=== PATIENT | female | born 2000 | race Asian ===

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

== ENCOUNTER 2019-12-15 18:32 | Emergency (ER) | payer OTHER, SELFPAY ==
[2019-12-15 18:43] VITALS: BP 127/85; PULSE 107; RESP 15; TEMP 36.9; O2SAT 97; BMI 23.9
--- NOTE | 2019-12-15 18:55 | ED_ITS ---
HPI - Chest Pain <TRACIE Marshall - Last Filed: 12/15/19 20:37> General Chief Complaint: Chest Pain Stated Complaint: feels like something stuck in her chest Time Seen by Provider: 12/15/19 18:38 Source: patient Mode of arrival: Ambulatory History of Present Illness HPI narrative: 19-year-old female with a history of anxiety, panic attacks, and palpitations, presents emergency department for ?feeling like there is something stuck in my chest ?. She states she has started taking antibiotics 3 days ago, every time she swallows the antibiotic she feels like it gets stuck. She states the feeling usually resolves in about 45 minutes. However, today she ate a piece of bread and felt like the food particle was stuck. Patient's mother states during this episode her daughter was complaining of shortness of breath, crying, and appeared sweaty. Patient states the feeling as lessened but remains there. She denies any chest pressure, pain, fevers, chills, nausea, vomiting, diarrhea, abdominal pain, or any other concerns. Related Data Previous Rx's Medication Instructions Recorded omeprazole 20 mg PO DAILY 14 Days #14 cap 12/15/19 Allergies Allergy/AdvReac Type Severity Reaction Status Date / Time No Known Drug Allergies Allergy Verified 12/15/19 18:42 Review of Systems <TRACIE Marshall - Last Filed: 12/15/19 20:37> Review of Systems Narrative: REVIEW OF SYSTEMS: GENERAL: Denies fever or chills. HENT: No head trauma or sore throat. EYES: No vision changes. CARDIOVASCULAR: Reports feeling like there is something stuck in her chest, see HPI. RESPIRATORY: No cough. GASTROINTESTINAL: No nausea, vomiting, diarrhea, or constipation. GENITOURINARY: No flank pain or dysuria. MUSCULOSKELETAL: No pain, weakness, or deformities. INTEGUMENTARY: No rash, lesions, or pruritus. NEURO: No numbness or tingling. Patient History <TRACIE Marshall - Last Filed: 12/15/19 20:37> Medical History Healthy adult (Acute) Surgical History No pertinent past surgical history (Acute) Social History Smoking Status: Never smoker Smoking Status: Never smoker alcohol intake frequency: 0-2 drinks per day Substance Use Type: does not use Exam <TRACIE Marshall - Last Filed: 12/15/19 20:37> Initial Vital Signs Initial Vital Signs: Vital Signs Temperature 98.5 F 12/15/19 18:43 Pulse Rate 107 H 12/15/19 18:43 Respiratory Rate 15 12/15/19 18:43 Blood Pressure 127/85 12/15/19 18:43 Pulse Oximetry 97 12/15/19 18:43 PHYSICAL EXAMINATION: GENERAL: Well groomed, alert, and cooperative. Answers questions promptly and appropriately. Vital signs noted. HENT: Normocephalic, atraumatic. Ear canals patent. Oral mucosa is pink and moist. Maintaining secretions. EYES: Conjunctiva pink, sclera white, no periorbital swelling. CHEST: Normal to inspection and without deformities. No pain with palpation. CARDIOVASCULAR: S1 and S2 sounds normal. Slight tachycardia, no clicks, murmurs, or bruits. RESPIRATORY: Normal respiratory rate, trachea midline, airway patent. No stridor, nasal flaring or accessory muscle use. Lungs are clear in all rosa w ithout wheeze, rhonchi, or crackles. GASTROINTESTINAL: Bowel sounds normoactive. Abdomen is soft and non-tender. No organomegaly. MUSCULOSKELETAL: Normal gait and coordination. Equal tone and mass bilaterally. EXTREMITIES: CMS intact. Moves all extremities. SKIN: Warm, dry, soft, appropriate color for ethnicity. No lesions, rashes, or wounds. NEURO: Alert and Oriented X 3. Good coordination. No ataxia, or sensory deficits, or cognitive issues. PSYCH: Appropriate affect and mood. <Betsy Alvarado MD - Last Filed: 12/16/19 01:55> Initial Vital Signs Initial Vital Signs: Vital Signs Temperature 98.5 F 12/15/19 18:43 Pulse Rate 107 H 12/15/19 18:43 Respiratory Rate 15 12/15/19 18:43 Blood Pressure 127/85 12/15/19 18:43 Pulse Oximetry 97 12/15/19 18:43 Course <TRACIE Marshall - Last Filed: 12/15/19 20:37> Course Course Narrative: 1949: Patient reports she is feeling much better after GI cocktail. She was given juice and crackers for a p.o. trial. 0: Patient continues to feel much better, is able to drink orange use any crackers. Discussed with patient about diet changes in taking anti acid medic ations. Orders Ordered: ED Orders 12/15/19 18:43 EKG-12 Lead Stat 12/15/19 19:01 XR chest 2V Stat XR soft tissue neck Stat 12/15/19 19:35 Complete Blood Count AUTO DIFF Stat Comprehensive Metabolic Panel Stat Troponin & CK Cardiac Panel Stat Discontinued Medications Al Hydrox/Mg Hydrox/Simethicone 20 ml/ Lidocaine HCl 15 ml 0 ml PO NOW ONE Stop: 12/15/19 18:50 Last Admin: 12/15/19 19:05 Dose: 35 ml Documented by: SUDEEP Vital Signs Vital signs: Vital Signs - 8 hr 12/15/19 18:43 12/15/19 20:15 12/15/19 20:31 Temperature 98.5 F Pulse Rate 107 H 82 90 Respiratory Rate 15 16 16 Blood Pressure 127/85 119/70 Blood Pressure [Right Arm] 119/70 Pulse Oximetry 97 99 97 <Betsy Alvarado MD - Last Filed: 12/16/19 01:55> Orders Ordered: ED Orders 12/15/19 18:43 EKG-12 Lead Stat 12/15/19 19:01 XR chest 2V Stat XR soft tissue neck Stat 12/15/19 19:35 Complete Blood Count AUTO DIFF Stat Comprehensive Metabolic Panel Stat Troponin & CK Cardiac Panel Stat Discontinued Medications Al Hydrox/Mg Hydrox/Simethicone 20 ml/ Lidocaine HCl 15 ml 0 ml PO NOW ONE Stop: 12/15/19 18:50 Last Admin: 12/15/19 19:05 Dose: 35 ml Documented by: SUDEEP Vital Signs Vital signs: Vital Signs - 8 hr 12/15/19 18:43 12/15/19 20:15 12/15/19 20:31 Temperature 98.5 F Pulse Rate 107 H 82 90 Respiratory Rate 15 16 16 Blood Pressure 127/85 119/70 Blood Pressure [Right Arm] 119/70 Pulse Oximetry 97 99 97 MDM - Chest Pain <TRACIE Marshall - Last Filed: 12/15/19 20:37> Medical Records Data Attestation: I reviewed the patient's medical records. Lab Data Attestation: I reviewed the patient's lab results. Result diagrams: 12/15/19 19:35 12/15/19 19:35 Labs: Lab Results 12/15/19 12/15/19 Range/Units 19:35 19:35 WBC 9.5 (4.5-11.0) X10^3/uL RBC 4.40 (4.0-5.2) X10^6/uL Hgb 13.3 (12.0-16.0) g/dL Hct 38.5 (36-46) % MCV 87.5 (80-100) fL MCH 30.3 (26-34) PG MCHC 34.6 (30-36) % RDW 12.8 (11.6-14.8) % Plt Count 255 (150-400) X10^3/uL Neut % (Auto) 71.2 (50-75) % Lymph % (Auto) 16.4 L (25-40) % [place] % (Auto) 7.5 (3-14) % Eos % (Auto) 1.5 L (2-4) % Baso % (Auto) 3.4 H (0-2) % Neut # (Auto) 6700 (4649-4251) /uL Lymph # (Auto) 1600 (5354-1968) /uL [place] # (Auto) 700 (0-900) /uL Eos # (Auto) 100 (0-450) /uL Baso # (Auto) 300 H (0-100) /uL Sodium 137 (137-145) mmol/L Potassium 3.4 (3.4-5.1) mmol/L Chloride 103 (98-107) mmol/L Carbon Dioxide 23 (22-32) mmol/L BUN 11 (7-17) mg/dL Creatinine 0.55 (0.52-1.04) mg/dL Estimated GFR > 60.0 (>60) mL/min BUN/Creatinine Ratio 20.0 (6-22) Glucose 187 H (70-100) mg/dL Calcium 9.7 (8.4-10.2) mg/dL Total Bilirubin 1.1 (0.2-1.3) mg/dL AST 25 (14-36) IU/L ALT 16 (<35) IU/L Alkaline Phosphatase 42 (38-126) U/L Total Creatine Kinase 119 (30-135) U/L CK-MB (CK-2) 2.46 H (<2.37) ng/mL CK-MB (CK-2) Rel Index 2.1 (1.5-5.0) % Troponin I < 0.012 (0.01-0.034) ng/mL Total Protein 8.1 (6.3-8.2) g/dL Albumin 4.6 (3.5-5.0) g/dL Globulin 3.5 (1.7-4.1) g/dL Albumin/Globulin Ratio 1.3 (1.0-2.8) Imaging Data Soft Tissue Neck XR: Radiologist's Impression: [address] [address] XRay Report Signed Patient: Ana Laura Berrios [facility]#: [id number] : 2000Acct:[id number] Age/Sex: FDate of Service: 12/15/19 Loc: ED Accession Number: [id number] Procedure: XR soft tissue neck Ordering Provider: Rocío Jain PROCEDURE: XR SOFT TISSUE NECK INDICATIONS: Possible foreign body, something stuck in my throat/chest TECHNIQUE: 2 views of the neck were acquired. COMPARISON: None. FINDINGS: Airway: The airway appears patent. Soft tissues: Prevertebral soft tissues are normal in thickness. The epiglottis and aryepiglottic folds appear normal. No soft tissue gas. No radiopaque foreign body Bones: No suspicious bony lesions. Visualized cervical spine is normally aligned. Linear sclerosis projecting at the thyroid cartilage. IMPRESSION: No radiopaque foreign body. Dictated by: Silvano Nolen M.D. on 12/15/2019 at 19:43 Approved by: Silvano Nolen M.D. on 12/15/2019 at 19:45 Chest x-ray: Radiologist's Impression: [address] [address] XRay Report Signed Patient: Ana Laura Berrios [facility]#: [id number] : 2000Acct:[id number] Age/Sex: / FDate of Service: 12/15/19 Loc: ED Accession Number: [id number] Procedure: XR chest 2V Ordering Provider: Rocío Jain PROCEDURE: XR CHEST 2V INDICATIONS: Rule out foreign body TECHNIQUE: 2 views of the chest were acquired. COMPARISON: None. FINDINGS: Surgical changes and devices: None. Lungs and pleura: Lungs are clear. No pleural effusions or pneumothorax. Mediastinum: Mediastinal contours are normal. Heart size is normal. Bones and chest wall: No suspicious bony abnormalities. Soft tissues appear unremarkable. IMPRESSION: Clear lungs No radiopaque foreign body identified Dictated by: Silvano Nolen M.D. on 12/15/2019 at 19:42 Approved by: Silvano Nolen M.D. on 12/15/2019 at 19:43 ECG Data Interpretation: Sinus rhythm, rate 95, MD interval 156, QTC 454. No ST elevation or ST depression. V3 with T-wave inversion. No ectopy. EKG also viewed by Dr. Alvarado per protocol. MDM Narrative Medical decision making narrative: 19-year-old healthy female presents emergency department with feelings of something stuck in her chest. I suspect patient's symptoms are most likely caused by an esophageal abrasion and or irritation due to lack of foreign body seen on x-ray, patient is maintaining secretions, patient reported improved symptoms after administration of GI cocktail. This irritation and sensation appeared after taking her antibiotic pills and just recently after swallowing some bread. I suspect the incident was made worse by patient's anxiety which he states has been high lately, patient has been seeing a therapist for this. This is most likely the cause of sweating and nervousness with a sensation. Less likely foreign body due to negative x-rays, complete resolution of symptoms after GI cocktail. Patient able to eat and drink without difficulty. Less likely cardiac in nature due to negative laboratory work. There was a T-wave inversion on EKG this may be related lead placement, no acute findings found on EKG at this time. Less likely acute abdominal etiology due to benign abdominal exam and lack of other symptoms such as fever. Patient did initially present with mild tachycardia which was significantly decreased after interview, this was seen on monitors. I suspect this may be related to anxiety. I Discussed the importance of follow-up with her primary care provider, patient and mother agreed to plan of care verbalized understanding. <Betsy Alvarado MD - Last Filed: 12/16/19 01:55> Lab Data Labs: Lab Results 12/15/19 12/15/19 Range/Units 19:35 19:35 WBC 9.5 (4.5-11.0) X10^3/uL RBC 4.40 (4.0-5.2) X10^6/uL Hgb 13.3 (12.0-16.0) g/dL Hct 38.5 (36-46) % MCV 87.5 (80-100) fL MCH 30.3 (26-34) PG MCHC 34.6 (30-36) % RDW 12.8 (11.6-14.8) % Plt Count 255 (150-400) X10^3/uL Neut % (Auto) 71.2 (50-75) % Lymph % (Auto) 16.4 L (25-40) % [place] % (Auto) 7.5 (3-14) % Eos % (Auto) 1.5 L (2-4) % Baso % (Auto) 3.4 H (0-2) % Neut # (Auto) 6700 (9996-4302) /uL Lymph # (Auto) 1600 (1170-7754) /uL [place] # (Auto) 700 (0-900) /uL Eos # (Auto) 100 (0-450) /uL Baso # (Auto) 300 H (0-100) /uL Sodium 137 (137-145) mmol/L Potassium 3.4 (3.4-5.1) mmol/L Chloride 103 (98-107) mmol/L Carbon Dioxide 23 (22-32) mmol/L BUN 11 (7-17) mg/dL Creatinine 0.55 (0.52-1.04) mg/dL Estimated GFR > 60.0 (>60) mL/min BUN/Creatinine Ratio 20.0 (6-22) Glucose 187 H (70-100) mg/dL Calcium 9.7 (8.4-10.2) mg/dL Total Bilirubin 1.1 (0.2-1.3) mg/dL AST 25 (14-36) IU/L ALT 16 (<35) IU/L Alkaline Phosphatase 42 (38-126) U/L Total Creatine Kinase 119 (30-135) U/L CK-MB (CK-2) 2.46 H (<2.37) ng/mL CK-MB (CK-2) Rel Index 2.1 (1.5-5.0) % Troponin I < 0.012 (0.01-0.034) ng/mL Total Protein 8.1 (6.3-8.2) g/dL Albumin 4.6 (3.5-5.0) g/dL Globulin 3.5 (1.7-4.1) g/dL Albumin/Globulin Ratio 1.3 (1.0-2.8) Discharge Plan Departure Patient Disposition: Home Clinical Impression: Esophageal abrasion Qualifiers: Encounter type: initial encounter Qualified Code(s): S27.818A - Other injury of esophagus (thoracic part), initial encounter Discharge Date/Time: 12/15/19 20:32 Activity Restrictions/Additional Instructions: Thank you for entrusting me with your care today. As discussed, I suspect your symptoms are most likely caused by an abrasion or irritation of your esophagus from your pills. You may discontinue your antibiotic pills. I have given you a prescription for an acid train planner, please take this as directed the next 2 weeks. I encourage you to avoid spicy or acidic foods as this could further irritate esophagus. Follow-up with your primary care provider in the next week for further evaluatio n. Return emergency department for any new or worsening symptoms such as chest pain, shortness of breath, difficulty swelling, or any other concerns. Prescriptions: New omeprazole 20 mg capsule,delayed release(DR/EC) 20 mg PO DAILY 14 Days Qty: 14 RF: 0 <Betsy Alvarado MD - Last Filed: 12/16/19 01:55> [facility] Attestation: I was immediately available in the department for consultation throughout this patient's visit. I agree with documentation as above. Betsy Alvarado MD
--- NOTE | 2019-12-15 19:01 | DI.RAD.S_ITS ---
PROCEDURE: XR CHEST 2V INDICATIONS: Rule out foreign body TECHNIQUE: 2 views of the chest were acquired. COMPARISON: None. FINDINGS: Surgical changes and devices: None. Lungs and pleura: Lungs are clear. No pleural effusions or pneumothorax. Mediastinum: Mediastinal contours are normal. Heart size is normal. Bones and chest wall: No suspicious bony abnormalities. Soft tissues appear unremarkable. IMPRESSION: Clear lungs No radiopaque foreign body identified Dictated by: Silvano Nolen M.D. on 12/15/2019 at 19:42 Approved by: Silvano Nolen M.D. on 12/15/2019 at 19:43
--- NOTE | 2019-12-15 19:01 | DI.RAD.S_ITS ---
PROCEDURE: XR SOFT TISSUE NECK INDICATIONS: Possible foreign body, something stuck in my throat/chest TECHNIQUE: 2 views of the neck were acquired. COMPARISON: None. FINDINGS: Airway: The airway appears patent. Soft tissues: Prevertebral soft tissues are normal in thickness. The epiglottis and aryepiglottic folds appear normal. No soft tissue gas. No radiopaque foreign body Bones: No suspicious bony lesions. Visualized cervical spine is normally aligned. Linear sclerosis projecting at the thyroid cartilage. IMPRESSION: No radiopaque foreign body. Dictated by: Silvano Nolen M.D. on 12/15/2019 at 19:43 Approved by: Silvano Nolen M.D. on 12/15/2019 at 19:45
[2019-12-15] MEDS: MAG HYDROX/ALUMINUM/SIMETH SUS 20 ML, LIDOCAINE VISCOUS 2% 15 ML PO (19:05)
[2019-12-15 19:56] LABS: Add Manual Diff / Slide Review NO; Basophils Absolute Auto 300 /uL (0-100); Basophils Percent Auto 3.4 % (0-2); Eosinophils Absolute Auto 100 /uL (0-450); Eosinophils Percent Auto 1.5 % (2-4); Hematocrit 38.5 % (36-46); Hemoglobin 13.3 g/dL (12.0-16.0); Lymphocytes Absolute Auto 1600 /uL (1100-4500); Lymphocytes Percent Auto 16.4 % (25-40); Mean Corpuscular HGB Conc 34.6 % (30-36); Mean Corpuscular Hemoglobin 30.3 PG (26-34); Mean Corpuscular Volume 87.5 fL (80-100); Monocytes Absolute Auto 700 /uL (0-900); Monocytes Percent Auto 7.5 % (3-14); Neutrophils Absolute Auto 6700 /uL (1500-7000); Neutrophils Percent Auto 71.2 % (50-75); Platelet Count 255 X10^3/uL (150-400); Red Cell Distribution Width 12.8 % (11.6-14.8); White Blood Cell Count 9.5 X10^3/uL (4.5-11.0)
[2019-12-15 20:04] LABS: Alanine Aminotransferase 16 IU/L (<35); Albumin 4.6 g/dL (3.5-5.0); Albumin Globulin Ratio 1.3 (1.0-2.8); Alkaline Phosphatase 42 U/L (38-126); Aspartate Aminotransferase 25 IU/L (14-36); Bilirubin Total 1.1 mg/dL (0.2-1.3); Blood Urea Nitrogen 11 mg/dL (7-17); Calcium 9.7 mg/dL (8.4-10.2); Carbon Dioxide 23 mmol/L (22-32); Chloride 103 mmol/L (98-107); Creatine Kinase 119 U/L (30-135); Estimated Glomerular Filt Rate > 60.0 mL/min (>60); Globulin 3.5 g/dL (1.7-4.1); Glucose 187 mg/dL (70-100); HEMOLYSIS < 15 (0-50); Potassium 3.4 mmol/L (3.4-5.1); Sodium 137 mmol/L (137-145); Total Protein 8.1 g/dL (6.3-8.2)
[2019-12-15 20:15] VITALS: BP 119/70; PULSE 82; RESP 16; O2SAT 99
[2019-12-15 20:16] LABS: Troponin I < 0.012 ng/mL (0.01-0.034)
[2019-12-15 20:19] LABS: CKMB % Relative Index 2.1 % (1.5-5.0); Creatine Kinase MB 2.46 ng/mL (<2.37)
[2019-12-15 20:31] VITALS: BP 119/70; PULSE 90; RESP 16; O2SAT 97
== END 2019-12-15 20:32 | disposition home or self-care (01) ==
PROVIDERS: Emergency Provider Nurse Practitioner
DX: S27.818A Other injury of esophagus (thoracic part), initial encounter (principal)
CPT/HCPCS: 36415; 70360; 71046; 80053; 82550; 82553; 84484; 85025; 93005; 93010; 99284

== ENCOUNTER → 2020-08-10 09:03 | Outpatient (CLI) | payer OTHER, SELFPAY ==
--- NOTE | 2020-08-10 09:23 | DI.RAD.S_ITS ---
PROCEDURE: XR FINGER RT MIN 2V INDICATIONS: eval R 5th finger DIP palmar aspect tender mass TECHNIQUE: AP hand, 2 views of the little finger(s) acquired. COMPARISON: None. FINDINGS: Bones: No fractures or dislocations. No suspicious bony lesions. Soft tissues: No suspicious soft tissue calcifications. IMPRESSION: Normal AP view of the right hand and views of the right little finger. No soft tissue mass identified radiographically. Dictated by: Eric Sparrow M.D. on 08/10/2020 at 10:04 Approved by: Eric Sparrow M.D. on 08/10/2020 at 10:05
== END ==
PROVIDERS: PCP Registered Nurse Diabetes Educator; Referring Provider Registered Nurse Diabetes Educator; Visit Provider Registered Nurse Diabetes Educator
DX: R22.31 Localized swelling, mass and lump, right upper limb (principal)
CPT/HCPCS: 73140

== ENCOUNTER → 2020-08-11 12:38 | Outpatient (CLI) | payer OTHER, SELFPAY ==
--- NOTE | 2020-08-11 12:39 | DI.US.S_ITS ---
PROCEDURE: US EXTREMELY NONVASC UPPER RT INDICATIONS: TENDER LUMP PALMAR ASPECT RIGHT FIFTH FINGER TECHNIQUE: Real-time scanning was performed of the tender reported masslike structure at the palm are aspect of the right 5th finger distally, with image documentation. COMPARISON: None. FINDINGS: No abnormality found. IMPRESSION: Source of current tenderness is not identified. No sonographically visual lesion is found. Dictated by: Eric Cuevas M.D. on 08/11/2020 at 16:05 Approved by: Eric Cuevas M.D. on 08/11/2020 at 16:06
== END ==
PROVIDERS: PCP Registered Nurse Diabetes Educator; Referring Provider Registered Nurse Diabetes Educator; Visit Provider Registered Nurse Diabetes Educator
DX: R22.31 Localized swelling, mass and lump, right upper limb (principal)
CPT/HCPCS: 76882